=== PATIENT | male | born 1940 | race Caucasian/White ===

== ENCOUNTER 2020-06-22 23:28 | Inpatient (IN) | payer OTHER ==
[~2020-06-22] VITALS: Ht 172.7 cm; Wt 60.8 kg
--- NOTE | 2020-06-22 23:40 | NUR ---
PT PRESENTS TO [facility] WITH REPORT OF ANXIETY. EMS REPORTS THAT PT WAS VOICING WANTING TO GO TO [facility] WITH HIS WHO IN 2012. EMS REPORTS THAT PT HAD TAKEN HIS DENTURES OFF AND TOLD DAUGHTER THAT SOMETHING WAS WRONG THAT HE COULD NOT SPEAK CLEARLY, AND THERE WAS SOMETHING IN HIS MOUTH. PT ARRIVES AAOX4 SPEAKING IN FULL SENTENCES.
[2020-06-22 23:42] VITALS: Ht 172.7 cm; Wt 60.8 kg
--- NOTE | 2020-06-23 00:10 | NUR ---
EKG BEING PERFORMED. PT REPORTING CHEST PAIN X 1 WEEK. PT REPORTS THAT HE TOLD HIS DAUGHTER SOMETHING WAS WRONG BECAUSE HE HAD TROUBLE OPENING HIS MOUTH. PT ABLE TO OPEN MOUTH WITHOUT DIFFICULTY. AIRWAY PATENT, MANAGING OWN SECRETIONS. HOB UP 30 DEGREES. SIDE RAILS UP. STRETCHER IN LOCKED AND IN LOWEST POSITION.
[2020-06-23 00:38] LABS: BASOPHIL % 0.3 % (0-2); PLATELET COUNT 226 x10^3mcL (130-400); RED CELL DISTRIBUTION WIDTH 15.6 % (11.5-14.5)
--- NOTE | 2020-06-23 00:40 | NUR ---
PT VOIDED IN URINAL. URINE CLEAR YELLOW. COLLBOARATED WITH ED MD AND ORDERS TO DIP AND SEND URINE TO LAB
[2020-06-23 00:41] LABS: CALCIUM 8.6 mg/dL (8.5-10.1); CARBON DIOXIDE 29.5 mmol/L (21-32); CHLORIDE SERUM 102 mmol/L (98-107); CREATININE SERUM 0.9 mg/dL (0.7-1.3); GLUCOSE SERUM 89 mg/dL (74-106); POTASSIUM SERUM 3.4 mmol/L (3.5-5.1); SODIUM SERUM 139 mmol/L (136-145)
[2020-06-23 00:46] LABS: ALBUMIN 3.5 g/dL (3.4-5.0); ALKALINE PHOSPHATASE 82 U/L (46-116); ALT/SGPT 23 U/L (16-63); AST/SGOT 31 U/L (15-37); BILIRUBIN TOTAL 0.44 mg/dL (0.20-1.00); CHOLESTEROL 157 mg/dL (<200); TOTAL PROTEIN, SERUM 6.8 g/dL (6.4-8.2)
--- NOTE | 2020-06-23 01:16 | NUR ---
ATTEMPTED TO MEDICATE PATIENT WITH ASPIRIN. PATIENT REPORTS "I TOOK 2 ASPIRIN AT 10PM FOR A HEADACHE." DR. ALVAREZ MADE AWARE. PATIENT REFUSING ASPIRIN AT THIS TIME. PER DR. ALVAREZ OKAY TO HOLD ASPIRIN AT THIS TIME.
--- NOTE | 2020-06-23 01:18 | NUR ---
PATIENT DENIES "DAILY HOME MEDICATIONS". 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
[2020-06-23] MEDS ORDERED: ANORO ELLIPTA1 POW IH (01:19)
--- NOTE | 2020-06-23 02:00 | NUR ---
ADMITTING RESIDENT IN WITH PT
--- NOTE | 2020-06-23 02:08 | NUR ---
CALL FROM DAUGHTER MILENA ASKING FOR AN UPDATE. PERMISSION RECEIVED FROM PT TO SHARE INFORMATION AND POC WITH DAUGHTER. DTR INFORMED PT IS BEING ADMITTED FOR POTENTIAL TIA.
--- NOTE | 2020-06-23 02:24 | NUR ---
REPORT CALLED TO NURSING UNIT SPOKE WITH ADALGISA HORTON.
[2020-06-23 02:43] VITALS: BP 149/66
--- NOTE | 2020-06-23 05:06 | NUR ---
ADMITTED THE PATIENT TO THE FLOOR,PT CAME TO THE FLOOR VIA [facility] AND WAS ACCOMPANIED BY THE NURSE AND HOSPITAL PERSONNEL.PT INITAIL ASSESSMET PATIENT IS AAO REG RESP NO SOB,PT WITH EQUAL CARPENTER AND PUSH AND MOVES ALL EXTRE,PT TALK WITH CLEAR SENTENCES,ABDO IS SOFT WITH ACTIVE BOWEL SOUNDS,PT WAS ORIENTED TO THE CALL LIGHT BED CONTROL TELE MONITOR,ND WAS PUT IN THE LOW POSITION AND LOCKD,CALL LIGHT MADE CLOSE TO THE PATIENT AND BED PUT IN LOW POSITION AND LOCKED,WILL CONTINUE TO MONITOR.
[2020-06-23 05:26] VITALS: BP 122/64
[2020-06-23 05:52] LABS: microscopic required? YES; urine erythrocyte NEGATIVE (NEGATIVE)
[2020-06-23 05:58] LABS: AMPHETAMINE QUAL UR NONE DETECTED (See below)
--- NOTE | 2020-06-23 06:22 | NUR ---
PT HAD ARESTING NIGHT NO CHANGE AT THIS TIME,WILL CONTINUE TO MONITOR.
[2020-06-23 08:17] VITALS: BP 124/59
[2020-06-23 12:19] LABS: CHOLESTEROL/HDL RATIO 2.6; MAGNESIUM 2.2 mg/dL (1.8-2.4); PHOSPHOROUS 2.8 mg/dL (2.5-4.9)
[2020-06-23 12:27] LABS: FREE T4 1.14 ng/dL (0.76-1.46); FREE THYROXINE INDEX 2.8 ug/dL (1.4-4.5); T4(THYROXINE) 7.7 ug/dL (4.7-13.3)
[2020-06-23 12:30] LABS: BASOPHIL % 0.3 % (0-2); PLATELET COUNT 212 x10^3mcL (130-400)
[2020-06-23 12:34] LABS: CALCIUM 8.7 mg/dL (8.5-10.1); CARBON DIOXIDE 30.6 mmol/L (21-32); CHLORIDE SERUM 104 mmol/L (98-107); CREATININE SERUM 0.5 mg/dL (0.7-1.3); GLUCOSE SERUM 80 mg/dL (74-106); POTASSIUM SERUM 3.4 mmol/L (3.5-5.1); SODIUM SERUM 139 mmol/L (136-145)
[2020-06-23 12:35] VITALS: BP 138/59
[2020-06-23 12:42] LABS: T3 TOTAL 1.09 ng/mL
[2020-06-23 12:52] LABS: RED CELL DISTRIBUTION WIDTH 15.4 % (11.5-14.5)
[2020-06-23 16:41] VITALS: BP 119/55
--- NOTE | 2020-06-23 17:10 | NUR ---
Patient is AAO*4, person, place, time and situation, SR on Monitor, sat on RA 96-97%, PT eval completed, with unsteady gait at times notice, pt recommend for discharge HH with PT, 2DEcho bubble study completed at bedside, patient had no complaint of dizziness, blurred vision or any any other discomfort, continue with plan of care
--- NOTE | 2020-06-23 19:30 | NUR ---
RECEIVED PT FROM DAY SHIFT NURSE IN BED ALERT AND AWAKE, A&O X4. SPEECH WNL. PUPILS ROUND AND REACTIVE TO LIGHT TO L EYE. 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 NO FACIAL DROOP NOTED. STRONG METAL GAUGE MAKER TO BUE, ROM WNL TO LOWER AND UPPER EXTREMITIES. PALPABLE PULSES, NO EDEMA NOTED. BREATHING IS EVEN AND UL ON RA, LUNG SOUNDS CTA. NO SOB OR ACUTE RESPIRATORY DISTRESS NOTED. BOWEL SOUNDS ACTIVE X4, ABD IS SOFT AND ROUND, NO C/O PAIN TO PALPATION. PER PT, SLIGHTLY UNSTEADY GAIT. INSTRUCTED TO CALL FOR HELP WHEN AMBULATING NEEDED. ECCHYMOSIS TO BUE NOTED. IV TO RFA, CDI AND PATENT. PT IS CALM AND COOPERATIVE AT THIS TIME. NO C/O PAIN OR DISCOMFORT AT THIS TIME. BED AT LOWEST POSITION. CALL LIGHT IS W/IN REACH. WILL CONTINUE TO MONITOR.
[2020-06-23 21:19] VITALS: BP 131/62
--- NOTE | 2020-06-23 21:44 | NUR ---
SPOKE TO DR. GRADY REGARDING PT ANXIETY AND EPISODE OF HALLUCINATIONS. MD ORDERED ANXIETY MEDICATION PRN AND NEBULIZER. OFFERED PT ANXIETY MEDICATION AND NEBULIZER, PT DENIED AND SAYS HE FEELS CALM AT THIS TIME. DR. MARTINO WILL CALL DAUGHTER FOR UPDATE. WILL CONTINUE TO MONITOR.
--- NOTE | 2020-06-23 22:54 | NUR ---
MD AWARE K+ LEVEL OF 3.4 NNO AT THIS TIME.
--- NOTE | 2020-06-24 | NUR ---
PT IS RESTING IN BED AWAKE AND ALERT. PT AWARE THAT URINE NEEDS TO BE COLLECTED. NO C/O PAIN OR DISCOMFORT AT THIS TIME. REMAINS IN STABLE CONDITION. CALL LIGHT IS W/IN REACH. WILL CONTINUE TO MONITOR.
[2020-06-24 05:24] VITALS: BP 121/58
--- NOTE | 2020-06-24 06:03 | NUR ---
PT IS RESTING IN BED AWAKE AND ALERT, A&0 X4. NO C/O PAIN OR DISCOMFORT THROUGHOUT SHIFT. URINE SAMPLE COLLECTED FOR URINE CX. CLEAR SPEECH. NO FACIAL DROOP NOTED. EQUAL HAND ANIMAL CARE ASSISTANT NOTED. ROM WNL. REMAINS IN STABLE CONDITION. CALL LIGHT IS W/IN REACH. WILL ENDORSE TO DAY SHIFT NURSE.
--- NOTE | 2020-06-24 06:13 | NUR ---
I HAVE REVIEWED THE DATA COLLECTION BY SOL GUPTA: MILEY GOEL ENTERED ON: 06/23 1900- 06/24 I CONCUR WITH THE DATA AND ANY EXCEPTIONS OR COMMENTS ARE LISTED BELOW:
--- NOTE | 2020-06-24 06:49 | NUR ---
PT HAD EPISODE OF STERNAL CHEST PRESSURE LIKE PAIN W/ SOB. BP 133/57 O2 99% RA MAP 105 HR 69 RR 16. DENIES ANXIETY. PT REPORTED "RIB PAIN". RT NOTIFIED TO GIVE ALBUTEROL NEBULIZER. DR. SALENA INTERIANO, PENDING CALL BACK. WILL INFORM DAY NURSE.
--- NOTE | 2020-06-24 07:15 | NUR ---
RECEIVED PT FROM NIGHT RN. PT RESTING IN BED W EYES CLOSED BUT EASILY AROUSABLE. AAOX4, DENIES CHAVEZ/DIZZINES. GARBLED SPEECH NOTED. NO FACIAL DROOPING, NO ARM DRIFT NOTED. EQUAL CERTIFIED PEER SPECIALIST STRENGTH NOTED. 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 NOTED PT HAS NO DENTURES. RES E/U, NO RESPIRATORY DISTRESS NOTED. TELE MONITOR 24 SHOWING SR, DENIES CP/PRESSURE. ABDOMEN SOFT. NO GI/ COMPLAINT. PERIPHERAL PULSES PALPABLE W NO EDEMA NOTED. AMBULATORY W ASSIST. IV SITE TO RFA SL PATENT AND CDI W NO S/S OF INFILTRATION NOTED. SAFETY PRECAUTIONS IN PLACE. WILL CONTINUE TO MONITOR
[2020-06-24 08:35] VITALS: BP 124/55
[2020-06-24 12:19] VITALS: BP 105/63
--- NOTE | 2020-06-24 12:29 | NUR ---
PT APPEARS ANXIOUS, GIVEN ATIVAN PER EMAR
[2020-06-24 16:57] VITALS: BP 101/55
--- NOTE | 2020-06-24 17:17 | NUR ---
TELE NEURO CONSULT DONE
[2020-06-24 19:21] VITALS: BP 114/55
--- NOTE | 2020-06-24 19:30 | NUR ---
RECEIVED PT FROM DAY SHIFT NURSE IN BED AWAKE AND ALERT ABLE TO FOLLOW COMMANDS, A&O X4. SPEECH IS CLEAR, NO FACIAL DROOP NOTED. L PUPIL ROUND AND REACTIVE TO LIGHT. PT REPORTS R EYE BLINDNESS. ROM WNL TO BUE AND BLE. PALPABLE PULSES, NO EDEMA NOTED. TELE 24, NSR. NO C/O CHEST PAIN, DIZZINESS, CHAVEZ, N/V OR PALPITATIONS. BREATHING IS EVEN AND UL ON RA, LUNG SOUNDS CTA. NO SOB OR ACUTE RESPIRATORY DISTRESS NOTED. BOWEL SOUNDS ACTIVE X4, ABD IS SOFT AND ROUND, NO C/O PAIN TO PALPATION. PT FWB, ABLE TO AMBULATE TO RESTROOM INDEPENDENTLY, SLOW PACE. ECHYMOSIS NOTED TO BUE. IV TO RFA, CDI AND PATENT. BED AT LOWEST POSITION. ABLE TO MAKE NEEDS KNOWN, CALL LIGHT IS W/IN REACH. WILL CONTINUE TO MONITOR.
--- NOTE | 2020-06-24 19:42 | NUR ---
PT RESTING IN BED WITHOUT APPARENT DISTRESS. NO SIGNIFICANT CHANGES NOTED. WILL ENDORSE CARE TO NEXT SHIFT.
--- NOTE | 2020-06-24 20:07 | NUR ---
DR. MARTINO MADE AWARE OF K 3.4
--- NOTE | 2020-06-25 00:26 | NUR ---
PT IS RESTING IN BED ASLEEP AND REMAINS IN STABLE CONDITION. NO C/O PAIN OR DISCOMFORT NOTED. CALLL IGHT IS W/IN REACH. REMAINS IN STABLE CONDITION. WILL CONTINUE TO MONITOR.
[2020-06-25 05:33] VITALS: BP 126/57
--- NOTE | 2020-06-25 05:55 | NUR ---
PT IS RESTING IN BED AWAKE AND ALERT, A&OX4. NO C/O PAIN OR DISCOMFORT THROUGHOUT SHIFT.NO SIGNIFICANT CHANGES NOTED. REMAINS IN STABLE CONDITION. SPEECH IS CLEAR, NO FACIAL DROOP NOTED. ROM WNL. CALL LIGHT IS W/IN REACH. WILL ENDORSE TO DAY SHIFT NURSE.
--- NOTE | 2020-06-25 05:57 | NUR ---
I HAVE REVIEWED THE DATA COLLECTION BY SOL GUPTA: MILEY GOEL ENTERED ON: 06/24 1900- 06/25 I CONCUR WITH THE DATA AND ANY EXCEPTIONS OR COMMENTS ARE LISTED BELOW:
--- NOTE | 2020-06-25 07:45 | NUR ---
RECIEVED PT FROM HOME THEATER INSTALLER NURSE. PT A/O X 4, CALM AND COOPERATIVE. NO FACIAL DROOPING NOTED, SPEECH DARIN, ABLE TO FOLLOW COMMANDS. S1 AND S2 NOTED. PULSES PALP, NO EDEMA NOTED. LUNG SOUNDS CLEAR, PT ON RA. GEN WEAKNESS NOTED, PT AMBULATORY. ECCHYMOSIS TO BUE. PT REPORTS NO PAIN AT THIS TIME. IV TO RFA PATENT, CDI. WILL CONT TO MONITOR.
[2020-06-25 08:27] VITALS: BP 118/57
[2020-06-25] MEDS ORDERED: ECO81 PO (09:08)
[2020-06-25] MEDS ORDERED: LIPI10 PO (09:08)
[2020-06-25] MEDS ORDERED: COL100 PO (09:08)
[2020-06-25] MEDS ORDERED: CIPRO500 MG PO (09:23)
[2020-06-25 09:46] VITALS: BP 118/57
--- NOTE | 2020-06-25 10:11 | NUR ---
JAYDON BROOKS SPEECH THERAPIST REGARDING SPEECH EVAL NEEDED BEFORE PT'S DISCHARGE. AWAITING CALL BACK.
--- NOTE | 2020-06-25 11:24 | NUR ---
SPOKE WITH TODD SPEECH THERAPIST, HE STATES HE WILL BE ABLE TO COME DO THE SPEECH EVALUATION AROUND [id number] TODAY.
[2020-06-25 12:19] VITALS: BP 148/78
--- NOTE | 2020-06-25 16:13 | NUR ---
SPOKE WITH TODD SPEECH THERAPIST. SPEECH EVAL COMPLETED, TODD STATED THAT WITH DENTURES, PT SHOULD BE OKAY WITH REGULAR DIET, BUT SINCE PT DOES NOT HAVE DENTURES WITH HIM AT THE TIME OF SPEECH EVALUATION, IT IS DIFFICULT TO ASSESS. WITHOUT DENTURES, TODD RECOMMENDS PUREE DIET WITH THIN LIQUIDS OKAY.
--- NOTE | 2020-06-25 16:18 | NUR ---
NOTIFIED JARON EDWARDS OF [place] WITH THIN LIQUIDS DIET RECOMMENDATION. PER JARON, PT IS TO STAY OVERNIGHT TO OBSERVE HOW THE PT TOLERATES A PUREE DIET. WILL UPDATE PT ON PLAN OF CARE AND INPUT ORDERS ACCORDINGLY.
--- NOTE | 2020-06-25 16:23 | NUR ---
PT WAS SEEN FOR DYSPHAGIA. PT WAS ABLE TOS AFELY SWALLOW PUREE DIET WITH THIN LIQUID WITHOUT S/S OF ASPIRATION. PT REFUSED TRIALS OF SOLID WITHOUT DENTURE. RECOMMENDATION PUREE DIET WITH THIN LIQUID.
[2020-06-25 17:04] VITALS: BP 138/61
--- NOTE | 2020-06-25 18:57 | NUR ---
PT TOLERATED PUREE THIN LIQUID DIET DINNER WELL. PT A/O X 4, TELE#24, NSR. BREATHING E/U, IN NO ACUTE RESP DISTRESS. PT SITTING UP AT BEDSIDE. PT REPORTS NO PAIN AT THIS TIME. IV TO RFA PATENT, DRESSING CDI. ALL QUESTIONS/CONCERNS ADDRESSED. WILL ENDORSE TO CIVIL ENGINEERING DRAFTSPERSON.
--- NOTE | 2020-06-25 19:35 | NUR ---
RECIEVED PT FROM AM NURSE. PT IN BED RESTING, A&OX4. PT VERBALIZED THAT HE WAS TOLD HE WOULD LEAVE TODAY AND WANTED TO LEAVE, HOWEVER THEY ARE KEEPING HIM OVER NIGHT. PT SAYS HE IS OK WITH THAT AT THIS TIME. PT COMPLIANT AND COOPERATIVE, DOES NOT HAVE ANY CONCERNS AT THIS TIME. WILL CONTINUE TO MONITOR.
[2020-06-25 20:00] VITALS: BP 124/61
--- NOTE | 2020-06-25 21:17 | NUR ---
PT TOLERATED MEDICATION WELL, PT HAS NO CONCERNS AT THIS TIME. ON TELE MONITOR 24 NSR. CALL LIGHT IN REACH, WILL CONTINUE TO MONITOR.
[2020-06-26 04:51] VITALS: BP 126/63
--- NOTE | 2020-06-26 06:21 | NUR ---
PT RESTING IN BED, HAS NO CONCERNS AT THIS TIME. PT WAS STABLE ALL THROUGHOUT THIS SHIFT, ALL NEEDS WERE MET. CALL LIGHT IN REACH, WILL CONTINUE TO MONITOR. WILL ENDORSE CARE TO AM RN.
--- NOTE | 2020-06-26 07:39 | NUR ---
RECIEVED PT FROM [employer] HOME NURSE. PT A/O X 4, CALM AND COOPERATIVE. TELE #24, NSR. S1 AND S2 NOTED. PULSES PALP, NO EDEMA NOTED. LUNG SOUNDS CLEAR BILAT, PT ON RA. PT VOIDS PER BRP. GEN WEAKNESS NOTED. PT REPORTS NO PAIN AT THIS TIME. PT REPORTS FEELING ANXIOUS TO GO HOME. IV TO RFA PATENT, DRESSING CDI. WILL CONT TO MONITOR.
[2020-06-26 08:37] VITALS: BP 153/90
[2020-06-26 08:38] VITALS: BP 153/90
--- NOTE | 2020-06-26 10:11 | NUR ---
REVIEWED DISCHARGE PAPERWORK WITH PT. EDUCATED ON STROKE SYMPTOMS, WHEN TO FOLLOW UP WITH PCP, AND WHEN TO REPORT TO EMERGENCY DEPT. IV LINE D/C'D, TELE #24 RETURNED TO EDGE STITCHER. PT AWAITING RIDE HOME.
== END 2020-06-26 10:21 | disposition home health service (06) | DRG 69 ==
LOC: ED 23:28 → DU 06-23 01:18
PROVIDERS: Specialist; ADMIT Internal Medicine; ATTEND Internal Medicine
DX: G45.9 Transient cerebral ischemic attack, unspecified (principal); G81.94 Hemiplegia, unspecified affecting left nondominant side; E87.6 Hypokalemia; D64.9 Anemia, unspecified; I10 Essential (primary) hypertension; H54.8 Legal blindness, as defined in USA; J44.9 Chronic obstructive pulmonary disease, unspecified; I25.10 Atherosclerotic heart disease of native coronary artery without angina pectoris; F41.9 Anxiety disorder, unspecified; Z86.73 Personal history of transient ischemic attack (TIA), and cerebral infarction without residual deficits
CPT/HCPCS: 83880; 84439; 92526-GN; 92610-GN; 97116-GP; 97530-GP; G0378; G0480; Q0092